=== PATIENT | male | born 1965 | race Caucasian/White ===

== ENCOUNTER 2023-06-09 20:00 | Emergency (ER) | payer MEDICARE, OTHER ==
[2023-06-09 20:51] VITALS: RESP 16; TEMP 98.2
--- NOTE | 2023-06-09 23:07 | ED ---
General Adult HPI - General Chief complaint: Head Injury Stated complaint: fall Time Seen by Provider: 06/09/23 20:35 Source: family, RN notes reviewed Mode of arrival: wheelchair Limitations: no limitations - History of Present Illness Initial comments: 58-year-old male presents to the emergency department for evaluation of fall with head injury. Patient was using his walker, he tripped on his feet. He fell backwards hitting his head on the crown molding. He did not lose consciousness. He is not on blood thinners. States that he is otherwise acting appropriately and at his baseline. 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 He has previously had a craniotomy. His sister in the room states that he has had previous brain bleed from falls in the past. - Related Data Allergies Allergy/AdvReac Type Severity Reaction Status Date / Time No Known Allergies Allergy Verified 06/09/23 20:20 Review of Systems ROS Statement: Those systems with pertinent positive or pertinent negative responses have been documented in the HPI. ROS Other: All systems not noted in ROS Statement are negative. Past Medical History Past Medical History: CVA/TIA Additional Past Medical History / Comment(s): Closed head injruy History of Any Multi-Drug Resistant Organisms: ESBL Date of last positivie culture/infection: 10/18/21 ESBL E.coli MDRO Source:: Urine Additional Past Surgical History / Comment(s): Brain Surgery Past Psychological History: No Psychological Hx Reported Smoking Status: Former smoker Past Alcohol Use History: None Reported Past Drug Use History: None Reported General Exam Limitations: no limitations General appearance: alert, in no apparent distress Head exam: Present: other Eye exam: Present: EOMI. Absent: PERRL ENT exam: Present: normal exam, mucous membranes moist Neck exam: Present: normal inspection. Absent: tenderness, meningismus, lymphadenopathy Respiratory exam: Present: normal lung sounds bilaterally. Absent: respiratory distress, wheezes, rales, rhonchi, stridor Cardiovascular Exam: Present: regular rate, normal rhythm, normal heart sounds. Absent: systolic murmur, diastolic murmur, rubs, gallop, clicks Extremities exam: Present: normal inspection, full ROM, normal capillary refill. Absent: tenderness, pedal edema, joint swelling, calf tenderness Back exam: Present: normal inspection Neurological exam: Present: alert Expanded Cranial nerves: EOM's Intact: Abnormal Right, Gag Reflex: Normal, Tongue Deviation: Normal, Facial Sensation: Normal Cerebellar function: Finger to Nose: Normal, Heel to Antunez: Normal Sensory exam: Upper Extremity Light Touch: Normal, Lower Extremity Light Touch: Normal Motor strength exam: RUE: 4, LUE: 5, RLE: 4, LLE: 5 Eye Response: (4) open spontaneously Motor Response: (6) obeys commands Verbal Response: (4) confused conversation Psychiatric exam: Present: normal affect, normal mood Skin exam: Present: warm, dry, intact, normal color Course Vital Signs 06/09/23 06/09/23 06/09/23 20:18 20:31 20:32 Temperature 98.2 F Pulse Rate 134 H 87 94 Respiratory 20 16 16 Rate Blood Pressure 105/70 113/70 96/56 O2 Sat by Pulse 100 97 98 Oximetry Medical Decision Making - Medical Decision Making Was pt. sent in by a medical professional or institution (, PA, PHYTOPATHOLOGIST, urgent care, hospital, or half-way...) When possible be specific @ -No Did you speak to anyone other than the patient for history (EMS, parent, family, police, friend...)? What history was obtained from this source @ -patient sister provided history Did you review nursing and triage notes (agree or disagree)? Why? @ -I reviewed and agree with nursing and triage notes Were old charts reviewed (outside hosp., previous admission, EMS record, old EKG, old radiological studies, urgent care reports/EKG's, half-way records)? Report findings @ -No old charts were reviewed Differential Diagnosis (chest pain, altered mental status, abdominal pain women, abdominal pain men, vaginal bleeding, weakness, fever, dyspnea, syncope, headache, dizziness, GI bleed, back pain, seizure, CVA, palpatations, mental health, musculoskeletal)? @ -Head injury, intracranial hemorrhage, fracture, this list is not all inclusive EKG interpreted by me (3pts min.). @ -None X-rays interpreted by me (1pt min.). @ -None done CT interpreted by me (1pt min.). @ -CT brain obtained which shows postcraniotomy changes in the left frontoparietal region, then underlying density more likely to be postop changes/dural thickening rather than small subdural hematoma; moderate to severe brain atrophy and chronic microvascular ischemic changes with remote infarct in the left occipital and temporal lobes; dilated ventricles consistent with brain volume loss however slightly greater than the degree of sulcal prominence, normal pressure hydrocephalus considered U/S interpreted by me (1pt. min.). @ -None done What testing was considered but not performed or refused? (CT, X-rays, U/S, labs)? Why? @ -None What meds were considered but not given or refused? Why? @ -None Did you discuss the management of the patient with other professionals (professionals i.e. Dr., PA, PHYTOPATHOLOGIST, lab, RT, psych nurse, oncology social work, legal word processor, teacher, property utilization officer, correctional casework specialist)? Give summary @ -Case discussed with Dr. Paez at [facility]. Patient presented for a fall, discussed that patient has chronic changes and an underlying density most likely to be postop changes/dural thickening believe rather than a small subdural hematoma although this was mentioned, this cannot be ruled out. Patient will be transferred to [facility] for further management and is accepted by Dr. Paez Was smoking cessation discussed for >3mins.? @ -No Was critical care preformed (if so, how long)? @ -No Were there social determinants of health that impacted care today? How? (Homelessness, low income, unemployed, alcoholism, drug addiction, transportation, low edu. Level, literacy, decrease access to med. care, penitentiary, rehab)? @ -No Was there de-escalation of care discussed even if they declined (Discuss DNR or withdrawal of care, Hospice)? DNR status @ -No What co-morbidities impacted this encounter? (DM, HTN, Smoking, COPD, CAD, Cancer, CVA, ARF, Chemo, Hep., AIDS, mental health diagnosis, sleep apnea, morbid obesity)? @ -None Was patient admitted / discharged? Hospital course, mention meds given and route, prescriptions, significant lab abnormalities, going to OR and other pertinent info. @ -Transferred. Patient presented to the emergency department following a fall. He is not on thinners, did not lose consciousness. Patient is a nonactivated trauma. Patient has an extensive cranial history with history of craniotomy in January following a traumatic fall down stairs. This was performed at [facility] by unknown neurosurgeon. Patient has residual right-sided weakness and pupillary defect from this. Patient is otherwise at his baseline mental status. A CT brain was obtained. CT took extensive amount of time to be read. I reviewed the report of this, patient is found to have mostly chronic changes. He has postcraniotomy changes in the left frontoparietal region with an underlying density which is more likely to be postop changes/dural thickening rather than a subdural hematoma. As this was mentioned, small subdural hematoma cannot be ruled out. Patient will be transferred to [facility] for the presence of neurosurgeon if necessary and continuation of care. Case was discussed with Dr. Paez at [facility] who is accepting of this transfer. Patient and sister are understanding and agreeable with this plan. Patient stable at time of transfer. Case was discussed with my attending physician, Dr. Holbrook who is agreeable with this plan. Undiagnosed new problem with uncertain prognosis? @ -No Drug Therapy requiring intensive monitoring for toxicity (Heparin, Nitro, Insulin, Cardizem)? @ -No Were any procedures done? @ -No Diagnosis/symptom? @ -Fall, head injury with possible small subdural hemorrhage Acute, or Chronic, or Acute on Chronic? @ -Acute Uncomplicated (without systemic symptoms) or Complicated (systemic symptoms)? @ -complicated Side effects of treatment? @ -No Exacerbation, Progression, or Severe Exacerbation? @ -No Poses a threat to life or bodily function? How? (Chest pain, [place], [place], pneumonia, PE, COPD, DKA, ARF, appy, cholecystitis, CVA, Diverticulitis, Homicidal, Suicidal, threat to staff... and all critical care pts) @ -yes Disposition Clinical Impression: Closed head injury, Subdural hematoma Disposition: OTHER INSTITUTION NOT DEFINED Condition: Stable Is patient prescribed a controlled substance at d/c from ED?: No Referrals: George Zhang MD [Primary Care Provider] - 1-2 days - Out of Hospital Transfer - Req. Specs Out of Hospital Transfer - Requested Specifics: Other Emergency Center ([facility])
--- NOTE | 2023-06-09 23:22 | CT ---
EXAMINATION TYPE: CT brain cspine wo con CT DLP: 1339 mGycm, Automated exposure control for dose reduction was used. DATE OF EXAM: 06/09/2023 8:59 PM COMPARISON: None. CLINICAL INDICATION:Male, 58 years old with history of fall; fall TECHNIQUE: Brain: Multiple axial CT images of the brain were obtained without IV contrast. Cspine: Axial CT images from the skull base to the inferior aspect of T2 we obtained without intraven ous contrast. Coronal and sagittal reformatted images were also reviewed. FINDINGS: Brain: Extra-axial spaces: There is a thin strip of increased attenuation overlying the lateral aspects of t he frontal temporal frontoparietal region on the left. This directly underlies a craniectomy flap and has a couple of calcifications; this is favored to represent postoperative changes/dural thickening over small subdural hematoma. Ventricular system: Appear dilated somewhat out of proportion to the degree of atrophy/sulcal promine nce, this can be seen with superimposed NPH. There could be mild transependymal shift of fluid. Cerebral parenchyma: No increased attenuation to suggest acute intraparenchymal hemorrhage. The gra y-white matter interface appears maintained without evidence of an acute territorial infarction by CT . Moderate to severe generalized brain atrophy. Remote infarct left occipital region and probably le ft anterior temporal lobe, with some ex vacuo dilatation superimposed on the ventriculomegaly. Scatt ered hypoattenuating areas are seen within the cerebral white matter, nonspecific but most often seen with chronic microvascular ischemic changes; moderate to severe degree. Brain stem structures appea r withered. Cerebellum: No acute abnormality. Mass effect: No evidence of mass effect or midline shift. Intracranial vasculature: Atherosclerotic calcifications of the larger arteries near the skull base. Soft tissues: Normal. Visualized orbits: Orbital contents appear grossly intact. Calvarium/osseous structures: No evidence of calvarial fracture. Previous craniotomy in the left fron stanley parietal region with bone flap in place. Paranasal sinuses and mastoid air cells: Mild/moderate mucosal thickening in the left maxillary sinus , mild on the right, and there is scattered mild mucosal thickening in the other paranasal sinuses. N o definite air-fluid levels. MRI is more sensitive for detecting acute processes such as infarct, and may be considered if clinica lly warranted. Cervical spine: Fracture: None seen. Osseous structures, spinal canal/neural foramina: Craniocervical junction is intact with mild degener ative changes. Dens appears minimally retroflexed without evidence of fracture. C1-C2 articulation is normal. There are a couple of small retrodental calcifications and minimal retrodental tissue, witho ut significant narrowing of the spinal canal suggested. There is otherwise mild to moderate multileve l degenerative disc disease and facet arthrosis in the cervical spine, probably most significant at C 4-C5 where disc osteophyte complex and uncovertebral joint arthropathy causes moderate to severe righ t and moderate left neural foraminal stenosis as well as mild to moderate canal stenosis. Milder narr owing at other levels. No critical stenosis is seen. Vertebral alignment: No traumatic malalignment. Preserved normal cervical lordosis. Trace degenerativ e retrolisthesis C3 on C4 and C4 on C5. Neck soft tissues: No significant abnormality.. Calcifications noted involving the cervical carotid a rteries mostly in the bifurcation regions, and along the aortic arch. Other: Limited cuts through the upper chest show part of a left chest dual-lead cardiac pacemaker. St ernotomy wires. Airway appears patent. Small shelf suggested in the trachea near the level of the thoracic inlet. Moderate biapical pulmonary emphysematous changes, with biapical pleural thickening and scarring. No acute infiltrate or pneumothorax. IMPRESSION: CT head: 1. No clearly acute intracranial CT abnormality. No mass effect or midline shift. 2. Status post craniotomy in the left frontoparietal region. Thin underlying density is judged more l ikely to be postoperative changes/dural thickening, rather than small subdural hematoma. 3. Moderate to severe generalized brain atrophy and chronic microvascular ischemic changes. Remote in farcts left occipital and temporal lobes. 4. Dilated ventricles, consistent with brain volume loss however seems slightly greater than the degr ee of sulcal prominence; superimposed normal pressure hydrocephalus is considered. CT cervical spine: 1. No evidence of acute cervical spine fracture or traumatic malalignment. 2. Mild/moderate cervical spondylosis. 3. Moderate biapical pulmonary emphysematous changes.
[2023-06-10 01:34] VITALS: BP 110/74; PULSE 72
== END 2023-06-10 01:04 | disposition other institution (70) ==
LOC: EC 20:00 → SUPCPDRO 20:00 → EC 06-10 01:04
DX: S06.5X0A Traumatic subdural hemorrhage without loss of consciousness, initial encounter (principal); Z87.891 Personal history of nicotine dependence; W01.0XXA Fall on same level from slipping, tripping and stumbling without subsequent striking against object, initial encounter
CPT/HCPCS: 70450; 72125; 99284